=== PATIENT | male | born 1945 | race Two or more races ===

== ENCOUNTER 2023-10-30 09:36 | Inpatient (IN) | payer OTHER, MEDICAID ==
[~2023-10-30] VITALS: Ht 162.6 cm; Wt 110.5 kg
[2023-10-30 10:38] VITALS: PULSE 94; RESP 24; O2SAT 94
[2023-10-30 10:41] LABS: Basophils # (auto) 0.1 10 ^3/uL (0-0.2); Basophils % (auto) 0.6 % (0.0-2.0); Eosinophils # (auto) 0.2 10 ^3/uL (0-0.8); Eosinophils % (auto) 2.2 % (0.0-7.0); Hematocrit 43.1 % (41.0-53.0); Lymphocytes # (auto) 0.9 10 ^3/uL (0.4-5.4); Mean Corpuscular Hemoglobin 29.4 pg (28.0-32.0); Mean Corpuscular Hgb Conc. 32.5 g/dL (32.0-36.0); Mean Corpuscular Volume 90.5 fL (80.0-100.0); Monocytes # (auto) 0.9 10 ^3/uL (0-1.3); Monocytes % (auto) 8.5 % (0.0-12.0); Neutrophils # (auto) 8.2 10 ^3/uL (1.6-8.6); Neutrophils % (auto) 79.7 % (37.0-80.0); Red Blood Cells 4.77 10^6/uL (4.5-5.90); Red Cell Distribution Width 14.9 % (11.8-14.3); White Blood Cell 10.3 10^3/uL (4.4-10.8)
[2023-10-30 10:55] LABS: INR 1.11 (0.9-1.15); Partial Thromboplastin Time 30.3 SEC (24.5-34.5); Prothrombin Time 11.6 sec (9.3-11.8)
[2023-10-30 11:11] LABS: Alanine Aminotransferase 31 U/L (7-40); Albumin 4.5 g/dL (3.2-4.8); Alkaline Phosphatase 66 U/L (46-116); Anion Gap 9 (5-15); Aspartate Aminotransferase 24 U/L (13-40); BUN/Creatinine Ratio 10.7 (10.0-20.0); Blood Urea Nitrogen 9 mg/dL (9-23); Calcium 9.3 mg/dL (8.5-10.1); Carbon Dioxide 28 mmol/L (20-30); Chloride 98 mmol/L (98-107); Glucose 108 mg/dL (74-106); Potassium 4.2 mmol/L (3.5-5.1); Sodium 135 mmol/L (136-145)
[2023-10-30 11:12] LABS: Bilirubin, Total 0.6 mg/dL (0.2-1.0); Total Protein 7.3 g/dL (5.7-8.2)
[2023-10-30 12:44] LABS: Rapid Influenza A Negative (Negative)
[2023-10-30 12:45] LABS: COVID19 ANTIGEN SOFIA FIA NEGATIVE (NEGATIVE); Rapid Influenza B Negative (Negative)
[2023-10-30] MEDS ORDERED: IOHEXOL 350 MG/ML 100ML IJ ONE (15:36)
[2023-10-30] MEDS ORDERED: NITROGLYCERIN 0.4 MG SL TAB SL ONE (18:30)
[2023-10-30] MEDS ORDERED: NITROGLYCERIN 0.4 MG SL TAB SL PRN (18:45)
[2023-10-30] MEDS ORDERED: methylPREDNISolone SOD SUCC 125 MG/2 ML VL IV ONE (18:45)
[2023-10-30] MEDS ORDERED: HYDROcodone-ACET 5/325MG TAB PO PRN (18:45)
[2023-10-30] MEDS ORDERED: MORPHINE SULFATE INJ 2 MG/ml SYRG IV PRN (18:45)
[2023-10-30] MEDS ORDERED: ALBUTEROL SULF 2.5 MG/0.5ML(0.5%) NEB SOLN NEB PRN (18:45)
[2023-10-30] MEDS ORDERED: ACETAMINOPHEN 325 MG TAB PO PRN (18:45)
[2023-10-30] MEDS: SODIUM CHLORIDE 0.9% 1,000 ML IV SCH (18:45)
[2023-10-30] MEDS ORDERED: ACET-6 PO (18:48)
[2023-10-30] MEDS ORDERED: MET50T PO (18:48)
[2023-10-30] MEDS ORDERED: ASPI-325 PO (18:48)
[2023-10-30] MEDS ORDERED: LISI20TA56 PO (18:48)
[2023-10-30] MEDS ORDERED: METF-372 PO (18:48)
[2023-10-30] MEDS ORDERED: PANT40TA57 PO (18:48)
[2023-10-30] MEDS ORDERED: HYDR12.55 PO (18:48)
[2023-10-30] MEDS ORDERED: MONT-8 PO (18:48)
[2023-10-30] MEDS ORDERED: TAMS0.4C36 PO (18:48)
[2023-10-30] MEDS ORDERED: ATOR20TA50 PO (18:48)
[2023-10-30] MEDS ORDERED: AMLO1TAB22 PO (18:48)
[2023-10-30] MEDS ORDERED: METO-159 PO (18:48)
[2023-10-30] MEDS ORDERED: DEXTROSE (50%) 50ML SYRG IV PRN (19:00)
[2023-10-30] MEDS: TAMSULOSIN HYDROCHLORIDE 0.4 MG CAP PO SCH (20:33)
[2023-10-30 20:52] LABS: Triglycerides 102 mg/dL (< 150)
[2023-10-30 20:53] LABS: LDL Cholesterol 64 mg/dL (< 100)
[2023-10-30 20:54] LABS: Cholesterol 117 mg/dL (< 200); HDL Cholesterol 41 mg/dL (40-59)
[2023-10-30 20:56] VITALS: BP 195/105; PULSE 97; RESP 24; O2SAT 94
[2023-10-30 21:50] VITALS: PULSE 91; RESP 18; O2SAT 93
[2023-10-30 22:00] VITALS: PULSE 94; RESP 15; O2SAT 96
[2023-10-30] MEDS: ACCU-CHEK COMFORT CURVE STRIP VI SCH (22:00)
[2023-10-30] MEDS: methylPREDNISolone SOD SUCC 40 MG/ML VL IV SCH (22:00)
[2023-10-30] MEDS: InsuLIN REG 1unit/0.01ml Soln (100units/ml) SC SCH (22:00)
[2023-10-30] MEDS: IPRATROPIUM BROM 0.5 MG/2.5ML INH SOL NEB SCH (22:12)
[2023-10-30] MEDS: ALBUTEROL SULF 2.5 MG/0.5ML(0.5%) NEB SOLN NEB SCH (22:12)
[2023-10-30] MEDS: amLODIPine BESYLATE 5 MG TAB PO SCH ×2 (22:28→22:31)
[2023-10-30] MEDS: LISINOPRIL 20 MG TAB PO SCH (22:29)
[2023-10-30] MEDS: METOPROLOL TARTRATE 50 MG TAB PO SCH (22:30)
[2023-10-30] MEDS: MONTELUKAST SODIUM 10 MG TAB PO SCH (22:31)
[2023-10-30] MEDS: ATORVASTATIN 20 MG TAB PO SCH (22:32)
[2023-10-31] VITALS (13 sets, daily range): BP systolic 127; BP diastolic 74; PULSE 72–93; RESP 17–20; TEMP 98; O2SAT 16–100
[2023-10-31] MEDS: IPRATROPIUM BROM 0.5 MG/2.5ML INH SOL NEB SCH ×6 (02:57→22:11)
[2023-10-31] MEDS: ALBUTEROL SULF 2.5 MG/0.5ML(0.5%) NEB SOLN NEB SCH ×6 (02:57→22:11)
[2023-10-31 06:46] LABS: Basophils # (auto) 0 10 ^3/uL (0-0.2); Basophils % (auto) 0.4 % (0.0-2.0); Eosinophils # (auto) 0 10 ^3/uL (0-0.8); Hematocrit 41.7 % (41.0-53.0); Lymphocytes # (auto) 0.7 10 ^3/uL (0.4-5.4); Lymphocytes % (auto) 10.8 % (10.0-50.0); Mean Corpuscular Hemoglobin 30.1 pg (28.0-32.0); Mean Corpuscular Hgb Conc. 33.5 g/dL (32.0-36.0); Mean Corpuscular Volume 89.9 fL (80.0-100.0); Monocytes # (auto) 0.1 10 ^3/uL (0-1.3); Monocytes % (auto) 1.7 % (0.0-12.0); Neutrophils # (auto) 5.5 10 ^3/uL (1.6-8.6); Neutrophils % (auto) 87.1 % (37.0-80.0); Red Blood Cells 4.64 10^6/uL (4.5-5.90); White Blood Cell 6.4 10^3/uL (4.4-10.8)
[2023-10-31 07:06] LABS: Alanine Aminotransferase 30 U/L (7-40); Alkaline Phosphatase 57 U/L (46-116); Anion Gap 11 (5-15); BUN/Creatinine Ratio 6.9 (10.0-20.0); Blood Urea Nitrogen 6 mg/dL (9-23); Calcium 9.3 mg/dL (8.5-10.1); Carbon Dioxide 23 mmol/L (20-30); Chloride 102 mmol/L (98-107); Glucose 191 mg/dL (74-106); Sodium 136 mmol/L (136-145)
[2023-10-31 07:07] LABS: Albumin 4.5 g/dL (3.2-4.8); Aspartate Aminotransferase 31 U/L (13-40); Bilirubin, Total 0.6 mg/dL (0.2-1.0); Total Protein 7.7 g/dL (5.7-8.2)
[2023-10-31] MEDS ORDERED: hydrALAZINE HCL 20 MG/ML VL IV PRN (09:00)
[2023-10-31] MEDS: ACCU-CHEK COMFORT CURVE STRIP VI SCH ×4 (09:34→22:14)
[2023-10-31] MEDS: InsuLIN REG 1unit/0.01ml Soln (100units/ml) SC SCH ×4 (09:37→22:15)
[2023-10-31] MEDS: METOPROLOL TARTRATE 50 MG TAB PO SCH ×2 (10:04→22:18)
[2023-10-31] MEDS: LISINOPRIL 20 MG TAB PO SCH ×2 (10:05→22:18)
[2023-10-31] MEDS: methylPREDNISolone SOD SUCC 40 MG/ML VL IV SCH (10:05)
[2023-10-31] MEDS: ENOXAPARIN SOD 40 MG/0.4 ML SYRINGE SC SCH (10:06)
[2023-10-31] MEDS: PANTOPRAZOLE 40 MG TAB PO SCH (10:06)
[2023-10-31] MEDS: amLODIPine BESYLATE 5 MG TAB PO SCH (10:06)
[2023-10-31] MEDS: ASPirin-EC 81 mg tab PO SCH (10:06)
[2023-10-31] MEDS: hydroCHLOROthiazide 25 MG TAB PO SCH (10:08)
[2023-10-31] MEDS: SODIUM CHLORIDE 0.9% 1,000 ML IV SCH (11:28)
[2023-10-31 12:34] LABS: Urine Bacteria FEW /hpf (None Seen); Urine Blood Negative /uL (Negative); Urine Clarity Clear (Clear); Urine Color Yellow (Yellow); Urine Mucus FEW (None Seen); Urine Protein, UAD 1+ (Negative); Urine Specific Gravity 1.018 (1.001-1.035); Urine Urobilinogen Normal (Negative); Urine WBC 1 /hpf (0 - 3)
[2023-10-31] MEDS ORDERED: FUROSEMIDE 20 MG/2 ML VIAL IV ONE ×2 (15:00→23:00)
[2023-10-31] MEDS ORDERED: AZITHROMYCIN 250 MG TAB PO ONE (18:30)
[2023-10-31] MEDS ORDERED: cefTRIAXone 1GM/50ML D5W 50 ML IV ONE (18:30)
[2023-10-31] MEDS: TAMSULOSIN HYDROCHLORIDE 0.4 MG CAP PO SCH (19:13)
[2023-10-31] MEDS ORDERED: ERGOCALCIFEROL 50,000 UNIT(1.25MG) CAP PO SCH (21:00)
[2023-10-31] MEDS: ATORVASTATIN 20 MG TAB PO SCH (22:18)
[2023-10-31] MEDS: MONTELUKAST SODIUM 10 MG TAB PO SCH (22:18)
[2023-11-01] VITALS (13 sets, daily range): BP systolic 125–139; BP diastolic 76–90; PULSE 60–85; RESP 16–20; TEMP 97.6–98.4; O2SAT 90–99
[2023-11-01] MEDS: ALBUTEROL SULF 2.5 MG/0.5ML(0.5%) NEB SOLN NEB SCH ×4 (02:05→14:20)
[2023-11-01] MEDS: IPRATROPIUM BROM 0.5 MG/2.5ML INH SOL NEB SCH ×4 (02:05→14:20)
[2023-11-01] MEDS: ACCU-CHEK COMFORT CURVE STRIP VI SCH ×2 (06:02→11:53)
[2023-11-01] MEDS: InsuLIN REG 1unit/0.01ml Soln (100units/ml) SC SCH ×2 (06:03→11:30)
[2023-11-01 06:07] LABS: Anion Gap 8 (5-15); Carbon Dioxide 29 mmol/L (20-30); Chloride 99 mmol/L (98-107); Potassium 3.7 mmol/L (3.5-5.1); Sodium 136 mmol/L (136-145)
[2023-11-01 06:08] LABS: Calcium 8.9 mg/dL (8.7-10.4)
[2023-11-01 06:13] LABS: BUN/Creatinine Ratio 16.5 (10.0-20.0); Blood Urea Nitrogen 16 mg/dL (9-23); Glucose 126 mg/dL (74-106)
[2023-11-01 06:14] LABS: Magnesium 1.9 mg/dL (1.6-2.6)
[2023-11-01] MEDS ORDERED: AZIT-43 PO (08:43)
[2023-11-01] MEDS ORDERED: ERGO1CAP23 PO (08:43)
[2023-11-01] MEDS ORDERED: ALBU108A5 IN (08:43)
[2023-11-01] MEDS ORDERED: POTASSIUM CHL 20 Meq TABLET PO ONE (08:45)
[2023-11-01] MEDS ORDERED: FUROSEMIDE 20 MG/2 ML VIAL IV ONE (08:45)
[2023-11-01] MEDS ORDERED: cefTRIAXone 1GM/50ML D5W 50 ML IV SCH (09:00)
[2023-11-01] MEDS: ENOXAPARIN SOD 40 MG/0.4 ML SYRINGE SC SCH (09:40)
[2023-11-01] MEDS: METOPROLOL TARTRATE 50 MG TAB PO SCH (09:42)
[2023-11-01] MEDS: PANTOPRAZOLE 40 MG TAB PO SCH (09:42)
[2023-11-01] MEDS: ASPirin-EC 81 mg tab PO SCH (09:42)
[2023-11-01] MEDS: amLODIPine BESYLATE 5 MG TAB PO SCH (09:42)
[2023-11-01] MEDS: LISINOPRIL 20 MG TAB PO SCH (09:43)
[2023-11-01] MEDS: hydroCHLOROthiazide 25 MG TAB PO SCH (09:44)
[2023-11-01] MEDS ORDERED: AZITHROMYCIN 250 MG TAB PO SCH (10:00)
== END 2023-11-01 16:54 | disposition home or self-care (01) | DRG 193 ==
LOC: ER 09:36 → EDBD 09:36 → TELE 18:47 → TELE-CENTR 10-31 17:59 → CENTRAL 10-31 19:05
PROVIDERS: ADMIT Nurse Practitioner Family; ATTEND Internal Medicine
DX: J18.0 Bronchopneumonia, unspecified organism (principal); J96.01 Acute respiratory failure with hypoxia; Z68.41 Body mass index [BMI] 40.0-44.9, adult; E66.01 Morbid (severe) obesity due to excess calories; E78.5 Hyperlipidemia, unspecified; I10 Essential (primary) hypertension; K21.9 Gastro-esophageal reflux disease without esophagitis; N40.0 Benign prostatic hyperplasia without lower urinary tract symptoms; E11.9 Type 2 diabetes mellitus without complications; E55.9 Vitamin D deficiency, unspecified; J45.909 Unspecified asthma, uncomplicated; R91.1 Solitary pulmonary nodule; Z71.3 Dietary counseling and surveillance
CPT/HCPCS: 36415; 36600; 71045; 71275; 80048; 80053; 80061; 81001; 82043; 82306; 82805; 82962; 83036; 83605; 83735; 83880; 84443; 84484; 85025; 85379; 85610; 85730; 87040; 87426; 87804; 93005; 93306; 93970; 94640; G0378; J1815